=== PATIENT | male | born 1980 | race African-American/Black ===

== ENCOUNTER 2020-08-27 17:31 | Emergency (ER) | payer OTHER ==
[~2020-08-27 17:31] MED LIST: CLEOCIN300 MG PO
[2020-08-27] MEDS ORDERED: IBUPROFEN800 MG PO (20:40)
[2020-08-27] MEDS ORDERED: CYCLOBENZAPRINE10 MG PO (20:40)
[2020-08-27] MEDS ORDERED: MEDROL 4MG DOSEP4 MG PO (20:40)
[2020-08-27] MEDS ORDERED: NORCO 5-325 TA1 EACH PO (20:40)
== END 2020-08-27 20:55 | disposition home or self-care (01) ==
LOC: FER 17:31
DX: S16.1XXA Strain of muscle, fascia and tendon at neck level, initial encounter (principal); S80.02XA Contusion of left knee, initial encounter; S00.93XA Contusion of unspecified part of head, initial encounter; Z79.899 Other long term (current) drug therapy; V49.50XA Passenger injured in collision with unspecified motor vehicles in traffic accident, initial encounter; Y92.410 Unspecified street and highway as the place of occurrence of the external cause
CPT/HCPCS: 70450; 72125; 73560